=== PATIENT | female | born 1945 | race Caucasian/White ===

== ENCOUNTER 2018-04-01 00:16 | Outpatient (CLI) | payer MEDICARE, BC | END 2018-04-01 00:17 | disposition critical access hospital (66) | LOC: EMS 00:16 | PROVIDERS: ATTEND Surgery | DX: R07.9 Chest pain, unspecified (principal); R10.13 Epigastric pain; R11.0 Nausea | CPT/HCPCS: A0425; A0427 ==

== ENCOUNTER 2018-04-01 00:55 | Emergency (ER) | payer MEDICARE, BC ==
[2018-04-01 01:50] LABS: BASOPHILS % (AUTO) 0.2 %; EOSINOPHILS % (AUTO) 0.2 %; HGB - HEMOGLOBIN 9.9 g/dL (12.0-16.0); INR 1.2 (0.8-1.2); LYMPHOCYTES % (AUTO) 92.8 %; MEAN CORPUSCULAR HEMOGLOBIN 29.1 pg (27.0-31.0); MEAN CORPUSCULAR HGB CONC 30.8 g/dL (32.0-36.0); MEAN CORPUSCULAR VOLUME 94.2 fL (81.0-99.0); MEAN PLATELET VOLUME 8.1 fL (7.9-10.8); MONOCYTES % (AUTO) 1.9 %; NEUTROPHILS % (AUTO) 4.9 %; PLT - PLATELET COUNT 187 10^3/uL (130-450); PT - PROTHROMBIN TIME 13.9 secs (9.9-12.6); RED BLOOD COUNT 3.39 10^6/uL (4.20-5.40); RED CELL DISTRIBUTION WIDTH 17.9 % (12.0-15.0)
[2018-04-01 01:55] LABS: ALBUMIN 3.7 g/dL (3.2-5.5); ALBUMIN/GLOBULIN RATIO 1.6 (1.0-2.2); BILIRUBIN,TOTAL 0.4 mg/dL (0.2-1.0); CALCIUM 8.4 mg/dL (8.5-10.3); CREATININE 1.7 mg/dL (0.4-1.0)
[2018-04-01 02:09] LABS: WHITE BLOOD COUNT 129.3 x10^3/uL (4.8-10.8)
[2018-04-01 02:10] LABS: ABNORMAL LYMPHS % (MANUAL) 0 %; BAND NEUTROPHILS % (MANUAL) 0 %
[2018-04-01 02:23] LABS: LYMPHOCYTES # (MANUAL) 124.1 10^3/uL (1.5-3.5); LYMPHOCYTES % (MANUAL) 96 %; NEUTROPHILS # (MANUAL) 5.2 10^3/uL (1.5-6.6); NEUTROPHILS % (MANUAL) 4 %
[2018-04-01 02:27] LABS: PLATELET ESTIMATE, MANUAL NORMAL (130-450,000) (NORMAL); RBC MORPHOLOGY (MULTIPLE) NORMAL APPEARANCE (NORMAL)
[2018-04-01 02:28] LABS: DIFFERENTIAL COMMENT MANUAL DIFFERENTIAL
--- NOTE | 2018-04-01 02:34 | XRAY Report ---
Reason: chest pain Procedure Date: 04/01/2018 Accession Number: [id number] / [id number] Procedure: XR - Chest 1 View X-Ray CPT Code: 40981 FULL RESULT: EXAM: CHEST RADIOGRAPHY EXAM DATE: 04/01/2018 02:22 AM. CLINICAL HISTORY: Chest pain. COMPARISON: None. TECHNIQUE: 1 view. FINDINGS: Lungs/Pleura: No focal opacities evident. No pleural effusion. No pneumothorax. Mediastinum: Within exam limitations, the cardiomediastinal contour is normal. Other: Right subclavian pacemaker. IMPRESSION: No evidence of acute cardiopulmonary disease. RADIA
--- NOTE | 2018-04-01 04:12 | ED Physician Documentation ---
PD HPI CHEST PAIN - Stated complaint Stated Complaint: CP - Chief complaint Chief Complaint: Cardiac - History obtained from History obtained from: Patient, EMS - History of Present Illness Timing - onset: Today Timing - onset during: Rest Timing - details: Abrupt onset, Now resolved Quality: Pressure Location: Substernal Radiation: Abdominal Improved by: Nitro Associated symptoms: No: Shortness of air, Diaphoresis, Nausea, Vomiting Similar symptoms before: Work up / diagnostics, Treatment Recently seen: Not recently seen - Additional information Additional information: Patient is a 72 year old female with multiple co-morbidities who is presenting to the emergency department for chest pain. Patient states that it started about 22:00 hours. Patient states it started at rest when she was going to lie down. patient states it is different then pain she has had in the past. Patient called ems. When ems arrived they treated with patient with a dose of nitro which helped the pain. Upon initial evaluation in the emergency department patient denied any symptoms. Review of Systems Constitutional: denies: Fever, Chills Eyes: reports: Reviewed and negative Ears: reports: Reviewed and negative Cardiac: reports: Chest pain / pressure. denies: Palpitations Respiratory: denies: Dyspnea, Cough, Hemoptysis, Wheezing GI: denies: Nausea, Vomiting : reports: Reviewed and negative Skin: reports: Rash, Lesions Musculoskeletal: denies: Neck pain, Back pain, Extremity pain Neurologic: denies: Altered mental status, Headache, LOC Immunocompromised: denies: Immunocompromised PD PAST MEDICAL HISTORY - Past Medical History Cardiovascular: Hypertension, High cholesterol, Coronary artery disease, Atrial fibrillation Endocrine/Autoimmune: HyPOthyroidism - Past Surgical History Past Surgical History: Yes General: Bowel surgery Cardiovascular: Pacemaker, Cardiac catheterization - Present Medications Home Medications: Ambulatory Orders Medication Instructions Recorded Confirmed Amiodarone [Pacerone] 200 mg PO DAILY 02/04/13 02/04/13 Atenolol [Tenormin] 50 mg PO BID 02/04/13 02/04/13 Cholecalciferol (Vitamin D3) 1,000 unit PO 02/04/13 02/04/13 [Vitamin D] Ciprofloxacin [Cipro] 250 mg PO Q12H 02/04/13 02/04/13 Clopidogrel [Plavix] 75 mg PO ONCE 02/04/13 02/04/13 Esomeprazole Magnesium [Nexium] 20 mg PO 02/04/13 02/04/13 Ezetimibe [Zetia] 10 mg PO QD 02/04/13 02/04/13 Fenofibrate Nanocrystallized 145 mg PO DAILY 02/04/13 02/04/13 [Tricor] Furosemide [Lasix] 40 mg PO DAILY 02/04/13 02/04/13 Levothyroxine [Synthroid] 150 mcg PO QDAC 02/04/13 02/04/13 Losartan [Cozaar] 25 mg PO 02/04/13 02/04/13 Potassium Chloride 10 meq PO 02/04/13 02/04/13 Simvastatin [Zocor] 20 mg PO QPM 02/04/13 02/04/13 Warfarin Sodium [Coumadin] 5 mg PO DAILY 02/04/13 02/04/13 - Allergies Allergies/Adverse Reactions: Allergies Allergy/AdvReac Type Severity Reaction Status Date / Time morphine Allergy Intermediate Rash Verified 04/01/18 01:04 iron Allergy Unknown Verified 04/01/18 01:04 - Social History Does the pt smoke?: No Smoking Status: Never smoker Does the pt drink ETOH?: No Does the pt have substance abuse?: No - Immunizations Immunizations are current?: Yes - POLST Patient has POLST: Yes PD ED PE NORMAL - Vitals Vital signs reviewed: Yes - General General: Alert and oriented X 3, No acute distress - HEENT HEENT: Atraumatic, PERRL - Neck Neck: No JVD - Cardiac Cardiac: RRR, No murmur - Respiratory Respiratory: No respiratory distress, Clear bilaterally - Abdomen Abdomen: Soft, Non tender - Derm Derm: Normal color, Warm and dry, No rash - Neuro Neuro: Alert and oriented X 3, No motor deficit, Normal speech PD ED PE EXPANDED - Extremities Extremities: Pedal edema bilateral Results - Vitals Vitals: Vital Signs - 24 hr 04/01/18 04/01/18 04/01/18 01:01 01:30 02:00 Temperature 36.3 C L Heart Rate 72 70 71 Respiratory 18 17 16 Rate Blood Pressure 140/77 H 131/63 H 116/62 O2 Saturation 96 96 96 04/01/18 04/01/18 04/01/18 02:30 03:00 03:30 Temperature Heart Rate 70 70 70 Respiratory 16 16 16 Rate Blood Pressure 110/61 122/61 120/61 O2 Saturation 95 95 97 Oxygen O2 Source Room air - EKG (time done) 0107 Rate: Rate (enter#) (70) Rhythm: Paced QRS: LVH Compare to prior EKG: Old EKG unavailable Computer interpretation: Disagree with computer 0346 Rate: Rate (enter#) (70) Rhythm: Paced QRS: Poor R wave progression - Labs Labs: Laboratory Tests 04/01/18 04/01/18 04/01/18 01:30 01:30 01:30 WBC 129.3 H* RBC 3.39 L Hgb 9.9 L Hct 31.9 L MCV 94.2 MCH 29.1 MCHC 30.8 L RDW 17.9 H Plt Count 187 MPV 8.1 Neut # (Auto) Not Reportable Lymph # (Auto) Not Reportable Andrews # (Auto) Not Reportable Eos # (Auto) Not Reportable Baso # (Auto) Not Reportable Absolute Nucleated RBC Not Reportable Total Counted 100 Band Neuts % (Manual) 0 Abnorm Lymph % (Manual) 0 Nucleated RBC % Not Reportable Neutrophils # (Manual) 5.2 Lymphocytes # (Manual) 124.1 H Monocytes # (Manual) 0.0 Eosinophils # (Manual) 0.0 Basophils # (Manual) 0.0 Differential Comment MANUAL DIFFERENTIAL WBC Morphology 2+ SMUDGE CELLS Platelet Estimate NORMAL (130-450,000) RBC Morph Micro Appear NORMAL APPEARANCE PT 13.9 H INR 1.2 APTT 27.8 Sodium 139 Potassium 4.0 Chloride 108 Carbon Dioxide 24 Anion Gap 7.0 BUN 29 H Creatinine 1.7 H Estimated GFR (MDRD) 30 L Glucose 115 H Calcium 8.4 L Total Bilirubin 0.4 AST 16 ALT 13 Alkaline Phosphatase 36 L Troponin I B-Natriuretic Peptide Total Protein 6.0 L Albumin 3.7 Globulin 2.3 Albumin/Globulin Ratio 1.6 Lipase 32 04/01/18 04/01/18 04/01/18 01:30 01:30 03:35 WBC RBC Hgb Hct MCV MCH MCHC RDW Plt Count MPV Neut # (Auto) Lymph # (Auto) Andrews # (Auto) Eos # (Auto) Baso # (Auto) Absolute Nucleated RBC Total Counted Band Neuts % (Manual) Abnorm Lymph % (Manual) Nucleated RBC % Neutrophils # (Manual) Lymphocytes # (Manual) Monocytes # (Manual) Eosinophils # (Manual) Basophils # (Manual) Differential Comment WBC Morphology Platelet Estimate RBC Morph Micro Appear PT INR APTT Sodium Potassium Chloride Carbon Dioxide Anion Gap BUN Creatinine Estimated GFR (MDRD) Glucose Calcium Total Bilirubin AST ALT Alkaline Phosphatase Troponin I < 0.04 < 0.04 B-Natriuretic Peptide 187 H Total Protein Albumin Globulin Albumin/Globulin Ratio Lipase - Rads (name of study) chest x-ray Radiology: Final report received (right sided pace maker, no other abnormalities) PD MEDICAL DECISION MAKING - ED course Complexity details: reviewed old records, reviewed results, re-evaluated patient, considered differential, d/w patient, d/w family ED course: Patient was seen and examined at bedside. ekg was performed which just showed a paced rhythm. patient was asymptomatic at initial evaluation. chest x-ray showed no acute abnormalities. Patient's repeat troponin and ekg were within normal limits. Patient and were made aware of the findings. patient was aware of her wbc and her renal failure. patient stated that both of those levels were normal for her. Patient was made aware of the importance of follow up emergently and was comfortable with the plan. Patient was stable for discharge with outpatient follow up. - Sepsis Event Vital Signs: Vital Signs - 24 hr 04/01/18 04/01/18 04/01/18 01:01 01:30 02:00 Temperature 36.3 C L Heart Rate 72 70 71 Respiratory 18 17 16 Rate Blood Pressure 140/77 H 131/63 H 116/62 O2 Saturation 96 96 96 04/01/18 04/01/18 04/01/18 02:30 03:00 03:30 Temperature Heart Rate 70 70 70 Respiratory 16 16 16 Rate Blood Pressure 110/61 122/61 120/61 O2 Saturation 95 95 97 Oxygen O2 Source Room air Departure - Departure Disposition: 01 Home, Self Care Clinical Impression: Atypical chest pain Condition: Good Instructions: ED Chest Pain Atypical Unkn Cause Follow-Up: Shamir Mercado MD [Primary Care Provider] - Tomorrow Comments: Your diagnostics today were within normal limits. that being said it is only a snapshot in time and cannot rule out significant cardiac disease. it is important to call your doctors today to schedule a follow up stress test and echocardiogram. You may return to the emergency department at any time for new, worsening or uncontrollable symptoms.
[2018-04-01 04:30] VITALS: BP 108/56
== END 2018-04-01 04:35 | disposition home or self-care (01) ==
LOC: EDUNIT# → ED 00:55
DX: R07.89 Other chest pain (principal); R94.31 Abnormal electrocardiogram [ECG] [EKG]; I10 Essential (primary) hypertension; I25.10 Atherosclerotic heart disease of native coronary artery without angina pectoris; E03.9 Hypothyroidism, unspecified; E78.00 Pure hypercholesterolemia, unspecified; I48.91 Unspecified atrial fibrillation; Z79.01 Long term (current) use of anticoagulants; Z95.0 Presence of cardiac pacemaker
CPT/HCPCS: 36415; 71045; 80053; 83690; 83880; 84484; 85025; 85610; 85730; 93005; 99282; 99284